=== PATIENT | male | born 1950 | race Caucasian/White ===

== ENCOUNTER 2018-03-30 05:33 | Inpatient (IN) | payer OTHER ==
[2018-03-24 13:04] LABS: BASOPHILS % (AUTO) 0.7 % (0.0-2.0); EOSINOPHILS % (AUTO) 3.3 % (1.0-6.0); HEMATOCRIT 38.2 % (41-53); HEMOGLOBIN 12.9 g/dL (13.5-17.5); LYMPHOCYTES % (AUTO) 31.6 % (22.0-44.0); MEAN CORPUSCULAR HEMOGLOBIN 30.2 pg (26.0-34.0); MEAN CORPUSCULAR HGB CONC 33.8 G/dL (31.0-37.0); MEAN CORPUSCULAR VOLUME 89 fL (80-100); MONOCYTES # (AUTO) 0.6 K/uL (0.1-1.0); MONOCYTES % (AUTO) 9.5 % (2.0-9.0); NEUTROPHILS # (AUTO) 3.4 K/uL (1.8-7.7); NEUTROPHILS % (AUTO) 54.9 % (40.0-70.0); PLATELET COUNT (AUTO) 246 K/uL (150-450); RED BLOOD CELL COUNT(AUTO) 4.28 MIL/uL (4.50-5.90); RED CELL DISTRIBUTION WIDTH 13.4 % (11.5-14.5)
[2018-03-24 13:17] LABS: PROTHROMBIN TIME 10.2 SEC (9.4-11.6)
[2018-03-24 13:23] LABS: ANION GAP 7 mmol/L (8-16); CALCIUM, TOTAL 9.4 mg/dL (8.8-10.5); CARBON DIOXIDE 27 mmol/L (22-29); CHLORIDE 106 mmol/L (98-107); CREATININE 1.17 mg/dL (0.60-1.30); GLOMERULAR FILTR. RATE CALC > 60 mL/min (>60); GLUCOSE,RANDOM 116 mg/dL (70-110); SODIUM SERUM 140 mmol/L (136-145); UREA NITROGEN, BLOOD 26 mg/dL (7-18)
[2018-03-24 13:30] LABS: ALANINE AMINOTRANSFERASE 39 U/L (12-78); ALBUMIN 3.6 g/dL (3.4-5.0); ALKALINE PHOSPHATASE 58 U/L (46-116); ASPARTATE AMINOTRANSFERASE 20 U/L (15-37); BILIRUBIN,TOTAL 0.4 mg/dL (0.1-1.0); TOTAL PROTEIN, SERUM 7.2 g/dL (6.4-8.2)
[~2018-03-30] VITALS: Ht 175.3 cm; Wt 113.7 kg
[~2018-03-30 05:33] MED LIST: AMLO-511 PO; ASPI-556 PO; ATOR20TA86 PO; CeFAZolin 1 GM/DEXTROSE 50 ML IV ONE; FENO160 PO; HYDR25TA PO; KDUR20 PO; LOSA50TA25 PO; RINGERS SOLUTION,LACTATED 1,000 ML IV ONE; RIVA20TA PO; SOTA80 PO
[2018-03-30] MEDS ORDERED: CeFAZolin 1 GM/DEXTROSE 50 ML IV ONE (06:00)
[2018-03-30] MEDS ORDERED: RINGERS SOLUTION,LACTATED 1,000 ML IV ONE (06:00)
[2018-03-30 06:16] LABS: GLUCOMETER DEV NAME(LOC) SDS 5; GLUCOSE,POINT OF CARE 121 MG/DL (70-110)
[2018-03-30] MEDS ORDERED: ACETAMINOPHEN 1000 MG/ISO-OSM 100 ML IV ONE (07:22)
[2018-03-30] MEDS ORDERED: SUCCINYLCHOLINE CHLORIDE 20 MG/ML 10 ML VIAL IVP ONE (09:59)
[2018-03-30] MEDS ORDERED: LIDOCAINE/PF 2% 5 ML VIAL IM ONE (09:59)
[2018-03-30] MEDS ORDERED: 0.9% SODIUM CHLORIDE 10 ML VIAL IVP ONE (09:59)
[2018-03-30] MEDS ORDERED: PHENYLEPHRINE HCL 10 MG/ML VIAL IVP ONE (09:59)
[2018-03-30] MEDS ORDERED: FentaNYL CITRATE-PF 100 MCG/2 ML VIAL IVP ONE (09:59)
[2018-03-30] MEDS ORDERED: MIDAZOLAM HCL 2 MG/2 ML VIAL IVP ONE (09:59)
[2018-03-30] MEDS ORDERED: EPHEDrine SULFATE 50 MG/ML VIAL IM ONE (09:59)
[2018-03-30] MEDS ORDERED: GLYCOPYRROLATE 0.2 MG/ML VIAL IM ONE (09:59)
== END 2018-03-30 10:00 | disposition home or self-care (01) | DRG 552 ==
LOC: 4E 05:33
PROVIDERS: ADMIT Orthopaedic Surgery Orthopaedic Surgery of the Spine; ATTEND Orthopaedic Surgery Orthopaedic Surgery of the Spine
DX: M48.02 Spinal stenosis, cervical region (principal); I48.91 Unspecified atrial fibrillation; E78.5 Hyperlipidemia, unspecified; R00.1 Bradycardia, unspecified; Z95.1 Presence of aortocoronary bypass graft; Z53.9 Procedure and treatment not carried out, unspecified reason
CPT/HCPCS: 87081; 93005; 93306; J0131; J0330; J0690; J2250; J2370; J3010; J3490; J7120

== ENCOUNTER 2018-07-13 06:49 | Observation (INO) | payer OTHER ==
[~2018-07-13] VITALS: Ht 172.7 cm; Wt 113.0 kg
[~2018-07-13 06:49] MED LIST changes: -LOSA50TA25 PO; +LOSA50TA64 PO; +TORS20 PO
[2018-07-13 07:21] LABS: BASOPHILS % (AUTO) 0.7 % (0.0-2.0); EOSINOPHILS % (AUTO) 3.2 % (1.0-6.0); HEMATOCRIT 40.1 % (41-53); HEMOGLOBIN 13.5 g/dL (13.5-17.5); LYMPHOCYTES # (AUTO) 2.1 K/uL (1.0-4.8); LYMPHOCYTES % (AUTO) 30.2 % (22.0-44.0); MEAN CORPUSCULAR HEMOGLOBIN 30.1 pg (26.0-34.0); MEAN CORPUSCULAR HGB CONC 33.7 G/dL (31.0-37.0); MEAN CORPUSCULAR VOLUME 90 fL (80-100); MONOCYTES # (AUTO) 0.6 K/uL (0.1-1.0); MONOCYTES % (AUTO) 8.5 % (2.0-9.0); NEUTROPHILS # (AUTO) 3.9 K/uL (1.8-7.7); NEUTROPHILS % (AUTO) 57.4 % (40.0-70.0); PLATELET COUNT (AUTO) 224 K/uL (150-450); RED BLOOD CELL COUNT(AUTO) 4.47 MIL/uL (4.50-5.90); RED CELL DISTRIBUTION WIDTH 13.9 % (11.5-14.5)
[2018-07-13 07:29] LABS: ANION GAP 8 mmol/L (8-16); CALCIUM, TOTAL 9.2 mg/dL (8.8-10.5); CARBON DIOXIDE 28 mmol/L (22-29); CHLORIDE 106 mmol/L (98-107); CREATININE 1.06 mg/dL (0.60-1.30); GLOMERULAR FILTR. RATE CALC > 60 mL/min (>60); GLUCOSE,RANDOM 114 mg/dL (70-110); POTASSIUM 3.9 mmol/L (3.5-5.1); SODIUM SERUM 142 mmol/L (136-145); UREA NITROGEN, BLOOD 20 mg/dL (7-18)
[2018-07-13] MEDS ORDERED: RINGERS SOLUTION,LACTATED 1,000 ML IV ONE ×2 (07:30→10:18)
[2018-07-13] MEDS ORDERED: DiphenhydrAMINE HCL 50 MG/ML VIAL IVP PRN (07:45)
[2018-07-13] MEDS ORDERED: MAG HYDROX/AL HYDROX/SIMETH 30 ML SUSP UDCUP PO PRN (07:45)
[2018-07-13] MEDS ORDERED: DEXAMETHASONE SOD PHOS 4 MG/ML VIAL IVP PRN (07:45)
[2018-07-13] MEDS ORDERED: BENZOCAINE/MENTHOL LOZENGE PO PRN (07:45)
[2018-07-13] MEDS ORDERED: ZOLPIDEM TARTRATE 10 MG TABLET PO PRN (07:45)
[2018-07-13 07:57] LABS: PROTHROMBIN TIME 10.1 SEC (9.4-11.6)
[2018-07-13] MEDS ORDERED: ACETAMINOPHEN 1000 MG/ISO-OSM 100 ML IV ONE (08:03)
[2018-07-13] MEDS ORDERED: SUGAMMADEX SODIUM 200 MG/2 ML VIAL IVP ONE (09:06)
[2018-07-13] MEDS ORDERED: FentaNYL CITRATE-PF 100 MCG/2 ML VIAL IVP PRN (10:00)
[2018-07-13] MEDS ORDERED: CYCLOBENZAPRINE HCL 10 MG TABLET PO PRN (10:00)
[2018-07-13] MEDS ORDERED: MEPERIDINE-PF 25 MG/ML VIAL IVP PRN (10:00)
[2018-07-13] MEDS ORDERED: HYDROmorphone 2 MG/ML SYRINGE IVP PRN (10:00)
[2018-07-13] MEDS ORDERED: OxyCODONE HCL/ACETAMINOPHEN 10-325 MG TABLET PO PRN (10:00)
[2018-07-13] MEDS ORDERED: GUM MASTIC/STORAX/MSAL/ALCOHOL LIQUID 0.67 ML VIAL TP ONE (11:34)
[2018-07-13] MEDS ORDERED: PROPOFOL 1% 20 ML VIAL IVP ONE (12:00)
[2018-07-13] MEDS ORDERED: EPHEDrine SULFATE 50 MG/ML VIAL IM ONE (12:00)
[2018-07-13] MEDS ORDERED: LIDOCAINE/PF 2% 5 ML VIAL INJ ONE (12:00)
[2018-07-13] MEDS ORDERED: ROCURONIUM BROMIDE 10 MG/ML 5 ML VIAL IVP ONE (12:00)
[2018-07-13] MEDS ORDERED: KETAMINE HCL 50 MG/ML 10 ML VIAL IVP ONE (12:00)
[2018-07-13] MEDS ORDERED: ONDANSETRON HCL 4 MG/2 ML VIAL IVP ONE (12:00)
[2018-07-13] MEDS ORDERED: MIDAZOLAM HCL 2 MG/2 ML VIAL IVP ONE (12:00)
[2018-07-13] MEDS ORDERED: DEXAMETHASONE SOD PHOS 4 MG/ML VIAL IVP ONE (12:00)
[2018-07-13] MEDS: ACETAMINOPHEN 500 MG TABLET PO SCH ×2 (14:48→20:29)
[2018-07-13] MEDS: HYDROmorphone 2 MG/ML SYRINGE IVP PRN ×2 (14:49→20:29)
[2018-07-13 15:04] VITALS: BP 147/74
[2018-07-13 20:06] VITALS: BP 139/68
[2018-07-13 23:32] VITALS: BP 124/59
[2018-07-14] MEDS: ACETAMINOPHEN 500 MG TABLET PO SCH ×2 (03:28→08:20)
[2018-07-14 03:35] VITALS: BP 136/59
[2018-07-14 07:47] VITALS: BP 133/71
[2018-07-14] MEDS ORDERED: POTASSIUM CHLORIDE 20 MEQ ER TABLET PO SCH (10:15)
[2018-07-14] MEDS ORDERED: AmLODIPine BESYLATE 5 MG TABLET PO SCH (10:15)
[2018-07-14] MEDS ORDERED: FENOFIBRATE 160 MG TABLET PO SCH (10:15)
[2018-07-14] MEDS ORDERED: ATORVASTATIN CALCIUM 20 MG TABLET PO SCH (10:15)
[2018-07-14] MEDS ORDERED: LOSARTAN POTASSIUM 50 MG TABLET PO SCH (10:15)
[2018-07-14] MEDS ORDERED: ASPIRIN 81 MG EC TABLET PO SCH (10:15)
[2018-07-14] MEDS ORDERED: HYDROCHLOROTHIAZIDE 25 MG TABLET PO SCH (10:15)
[2018-07-14] MEDS ORDERED: SOTALOL HCL 80 MG TABLET PO SCH ×2 (10:45→21:00)
[2018-07-14 11:23] VITALS: BP 142/63
[2018-07-15] MEDS ORDERED: TORSEMIDE 20 MG TABLET PO SCH (09:00)
== END 2018-07-14 14:30 | disposition home or self-care (01) ==
LOC: INTOOBSV 06:49 → 4E 06:49
PROVIDERS: ADMIT Orthopaedic Surgery Orthopaedic Surgery of the Spine; ATTEND Orthopaedic Surgery Orthopaedic Surgery of the Spine
DX: M48.02 Spinal stenosis, cervical region (principal); I11.0 Hypertensive heart disease with heart failure; I50.9 Heart failure, unspecified; I48.91 Unspecified atrial fibrillation; I25.119 Atherosclerotic heart disease of native coronary artery with unspecified angina pectoris; E78.00 Pure hypercholesterolemia, unspecified; Z79.01 Long term (current) use of anticoagulants; Z95.5 Presence of coronary angioplasty implant and graft
CPT/HCPCS: 20936; 22551; 22552 ×2; 22853 ×3; 36415; 80048; 85025; 85610; 85730; 87081; 93005; 96374; 96376; 97116; 97162; 97165; 97530; 97535; C1713 ×2; G0378 ×2; J0131; J0690; J1100; J1170; J2250; J2405; J2704; J3490 ×4; J7120; Z7506; Z7508